=== PATIENT | male | born 1950 | race Caucasian/White ===

== ENCOUNTER → 2023-11-06 15:02 | Outpatient (REF) | payer MEDICARE, SELFPAY | LOC: RAD 15:02 | PROVIDERS: ATTENDING PHYSICIAN Nurse Practitioner Family | DX: R22.43 Localized swelling, mass and lump, lower limb, bilateral (principal); Z96.652 Presence of left artificial knee joint; M79.662 Pain in left lower leg | CPT/HCPCS: 93971 ==

== ENCOUNTER → 2024-01-15 09:01 | Outpatient (REF) | payer MEDICARE, SELFPAY | LOC: RAD 09:01 | PROVIDERS: ATTENDING PHYSICIAN Otolaryngology Facial Plastic Surgery; FAMILY PHYSICIAN Family Medicine | DX: R13.12 Dysphagia, oropharyngeal phase (principal) | CPT/HCPCS: 74221 ==

== ENCOUNTER 2024-05-11 20:32 | Emergency (ER) | payer MEDICARE, SELFPAY ==
[2024-05-11 20:34] VITALS: BP 168/89
--- NOTE | 2024-05-11 22:39 | ED.GENMED ---
History of Present Illness
<NAZIA Vera - Last Filed: 05/12/24 00:00>
General
Chief Complaint: Fall
Source: patient and family
Exam Limitations: none
Time Seen by Provider: 05/11/24 22:28
Nursing documentation reviewed up to this point in time: agreed with
History of Present Illness
History of Present Illness:
Patient is a 74yo M who presents after a fall about 4 hrs ago. Pt was doing work on [employer] when he tripped, fell, and landed on nose. Wound on bridge of nose that is still bleeding. Was wearing glasses when fell but glasses did not break. Denies
hitting head, LOC, and any other injuries. Pt denies tenderness, trouble breathing, and loss of smell. Denies BATEMAN, dizziness, N/V, or changes to vision/hearing. Unable to provide full med list but does not beleive on any thinners.
Past History
<NAZIA Vera - Last Filed: 05/12/24 00:00>
Past History
ED Past Medical History: GERD (Hiatal hernia), Hypercholesterolemia, NIDDM (Prediabetes) and Other (BPH; obstructive sleep apnea, benign familial tremor)
ED Past Surgical History: Orthopedic
Social History
Tobacco: Non-smoker
Personal:
Living: with family
Employment: Employed
Family History
Family History: Other (Noncontributory)
Review of Systems
<NAZIA Vera - Last Filed: 05/12/24 00:00>
Review of Systems
Constitutional: Denies fever, fatigue or chills
Respiratory: Denies cough or trouble breathing
Cardiac: Denies chest pain or palpitations
ABD/GI: Denies abdominal pain, nausea, vomiting, diarrhea or constipated
: Denies dysuria
Musculoskeletal: Denies joint pain, muscle pain, neck pain or back pain
Neurological: Denies dizzy, headache or numbness
Hematologic/Lymphatic: Reports bleeding
Phy Exam
<NAZIA Vera - Last Filed: 05/12/24 00:00>
General Physical Exam
General Presentation: well appearing
General age: appears stated age
General Skin: warm and dry
General Habitus: normal
General Mental: alert
ENT Exam
ENT Exam: normocephalic and other
Cardiovascular Exam
Cardiovascular Exam: regular rate/rhythm, no edema, no gallop and no murmur
Pulmonary Exam
Pulmonary Exam: lungs clear, no respiratory distress, no rales, no crackles, no rhonchi and no wheezing
Neurological Exam
Neurological Exam: alert, oriented x3 and speech normal
Course
<NAZIA Vera - Last Filed: 05/12/24 00:00>
Orders/Labs/Results
Orders:
Orders
05/11/24 23:13
Cephalexin Monohydrate [Keflex] 500 mg PO NOW STA
Tetanus/Diphth/Acelpertussis [Adacel] 0.5 ml IM .ONCE ONE
Vital Signs
Initial and Last Documented VS:
Initial Vital Signs
Temp Pulse Resp BP Pulse Ox
98.1 F 58 16 168/89 100
05/11/24 20:34 05/11/24 20:34 05/11/24 20:34 05/11/24 20:34 05/11/24 20:34
Last Documented Vital Signs
Temp Pulse Resp BP Pulse Ox
98.1 F 58 16 168/89 100
05/11/24 20:34 05/11/24 20:34 05/11/24 20:34 05/11/24 20:34 05/11/24 20:34
<Radha Al DO - Last Filed: 05/11/24 23:47>
Orders/Labs/Results
Orders:
Orders
05/11/24 23:13
Cephalexin Monohydrate [Keflex] 500 mg PO NOW STA
Tetanus/Diphth/Acelpertussis [Adacel] 0.5 ml IM .ONCE ONE
Vital Signs
Initial and Last Documented VS:
Initial Vital Signs
Temp Pulse Resp BP Pulse Ox
98.1 F 58 16 168/89 100
05/11/24 20:34 05/11/24 20:34 05/11/24 20:34 05/11/24 20:34 05/11/24 20:34
Last Documented Vital Signs
Temp Pulse Resp BP Pulse Ox
98.1 F 58 16 168/89 100
05/11/24 20:34 05/11/24 20:34 05/11/24 20:34 05/11/24 20:34 05/11/24 20:34
Procedures
<NAZIA Vera - Last Filed: 05/12/24 00:00>
Laceration Closure
Nose:
Status of Wound: clean
Size of Wound in cm: 1
Description of Wound Edges: sharp
Preparation: cleaned with saline
Revision/Debridement: routine- no revision
Type of Closure: Dermabond-skin glue
<Radha Al DO - Last Filed: 05/11/24 23:47>
*Pulse Oximetry
Patient hypoxic: no
*Critical Care Note
Total Time (30-74mins, 75-104mins- exclusive of procedures): Not Applicable
ED Attending Note
<NAZIA Vera - Last Filed: 05/12/24 00:00>
-
Portions of this chart may have been created with voice recognition software.� Occasional wrong word or��sound alike� substitutions may have occurred due to the inherent limitations of voice recognition software.
<Radha R. Al, DO - Last Filed: 05/11/24 23:47>
ED Attending Note
Patient seen and examined by attending physician: Yes
I performed the substantive portion of visit, reviewed & personally made and approve the management plan that is documented in note by myself or CABRERA.: Yes
ED Attending Note:
This is a 74-year-old gentleman who has history of hypertension, hyperlipidemia, GERD, BPH, kidney stones, prediabetes. He states while working on a new deck at home he suffered a trip and fall from standing position, falling forward striking his
nose on concrete. He was wearing his glasses at the time, glasses are intact but he has sustained a laceration to the bridge of his nose with moderate bleeding initially, bleeding subsided with local pressure. He does believe he may have had brief
epistaxis but most of the bleeding was from the bridge of his nose. He also noted a curved abrasion to his mid forehead. No loss of consciousness, he denies headache, denies neck nor back pain, no extremity pain, no dizziness nor lightheadedness.
No vision difficulty. He arrives to the ED via private vehicle accompanied by his .
Last Tdap 5 years ago.
TRAUMA EXAM:
VITAL SIGNS: Vital signs reviewed, cooperative
DISTRESS: No active disease
EYES: Pupils reactive, no orbital trauma
NOSE: There is a superficial abrasion at the nasal bridge with a 1 cm curved laceration at the inferior aspect of this abrasion with puncture wound at the central area of this laceration. No active bleeding. No soft tissue swelling. No tenderness
to palpation. No deformity. No epistaxis. No blood per nares and no evidence of septal hematoma.
FACE AND SCALP: There is a superficial curved abrasion mid forehead between the brows. No active bleeding. No tenderness to palpation.
NECK: Supple nontender, full range of motion without difficulty nor pain.
BACK: Back nontender, pelvis stable to compression
RESPIRATORY: No distress, breath sounds normal, no tender chest wall
CARDIAC: No murmur, pulses equal and strong
ABDOMEN: Soft nontender bowel sounds normal
SKIN: Warm and dry, normal color, good turgor. No rash.
EXTREMITIES: Nontender. There is a 2 cm superficial abrasion right anterior knee. No palpable tenderness, full range of motion of all extremities without difficulty nor pain.
NEUROLOGICAL: Alert, oriented, no motor deficits. Gait is moss and steady.
PSYCH: Mood affect normal
Patient suffered mechanical trip and fall striking his face on concrete. No loss of consciousness. Takes no anticoagulants. No complaints of pain.
Has suffered a jagged laceration bridge of the nose with surrounding abrasion. Laceration is dermal in depth at central aspect otherwise superficial.
Wound has been copiously irrigated by myself with normal saline solution. Explored to base, no foreign body visualized. No active bleeding.
Will plan for Dermabond closure.
No focal tenderness to nose, no deformity, no indication for nasal bone x-ray.
Will update Tdap.
Will initiate a course of Keflex for infection prevention.
Routine wound care discussed.
05/11/2024 2347 PM
Dermabond wound glue of nasal laceration performed by PA student under my direct supervision.
Steri-Strip applied over wound glue.
Discharge Plan
Departure
Patient Disposition: Home (Routine Discharge)
Date of Disposition: 05/11/24
Time of Disposition: 23:43
Patient with high blood pressure during this ER visit?: No
Condition: Good
Discharge Problem:
Laceration of nose without complication, Abrasion of brow, Abrasion, right knee, initial encounter
Instructions: Laceration Repair With Glue (DC), Preventing falls in adults, Skin Abrasions (DC), Tdap vaccine, Steri-Strips over Glued Wound
Prescriptions:
New
cephalexin 500 mg capsule
1,000 mg PO BID 7 Days Qty: 28 0RF
No Action
atorvastatin 10 MG tablet
20 mg PO DAILY
ibuprofen 200 MG tablet
400 mg PO BID Qty: 0 0RF
Rx Instructions:
Take with food
Do not take within 2 hours of aspirin
hydrocodone-acetaminophen 5-300 mg tablet
1 tab PO Q8H PRN (Reason: Pain) Qty: 7 0RF
oxycodone 5 mg tablet
5 mg PO Q6H PRN (Reason: Pain) Qty: 12 0RF
multivitamin Tablet
1 tab PO DAILY
metoprolol succinate 100 mg Tablet Extended Release 24 Hr
100 mg PO DAILY
tamsulosin 0.4 mg Capsule
0.4 mg PO DAILY
gabapentin 100 mg Capsule
100 mg PO TID
celecoxib 200 mg Capsule
200 mg PO PRN PRN (Reason: pain)
Referrals:
Carson Saldivar MD [Family Provider] - Follow up in 5-7 days
Interventions
Interventions:
*Risk Screen - Suicide Last Done: 05/11/24 20:34
*Neglect/Abuse Screening Last Done: 05/11/24 20:34
*Nursing Disposition Last Done: 05/11/24 23:54
ED-Musculoskeletal Assessment Last Done: 05/11/24 22:21
ED- Neurological Assessment Last Done: 05/11/24 22:21
ED-Skin Assessment Last Done: 05/11/24 22:21
Discharge Date and Time
Discharge Date/Time: 05/11/24 23:55
Print Language: UKRAINIAN
[2024-05-11] MEDS: ADACEL 0.5 ML IM (23:24)
[2024-05-11] MEDS: KEFLEX 500 MG PO (23:24)
== END 2024-05-11 23:55 | disposition home or self-care (01) ==
LOC: EMR 20:32
PROVIDERS: EMERGENCY PHYSICIAN Emergency Medicine; FAMILY PHYSICIAN Family Medicine
DX: S01.21XA Laceration without foreign body of nose, initial encounter (principal); S80.211A Abrasion, right knee, initial encounter; W01.0XXA Fall on same level from slipping, tripping and stumbling without subsequent striking against object, initial encounter; E78.00 Pure hypercholesterolemia, unspecified; K21.9 Gastro-esophageal reflux disease without esophagitis; Z23 Encounter for immunization
CPT/HCPCS: 99283; 12011; 90471; 90715